=== PATIENT | male | born 1960 | race Caucasian/White ===

== ENCOUNTER 2016-10-06 19:05 | Emergency (ER) | payer OTHER ==
[~2016-10-06] VITALS: Ht 170.2 cm; Wt 85.0 kg
[2016-10-06 19:06] VITALS: Ht 170.2 cm; Wt 85.0 kg
[2016-10-06] MEDS ORDERED: SOD CHLORIDE 0.9% 1,000 ML IV STA (19:30)
[2016-10-06 19:58] LABS: ADD SCAN DIFF NO
[2016-10-06 20:01] LABS: ADD UMIC YES; URINE BILIRUBIN (Dip) NEGATIVE (NEGATIVE); URINE BLOOD (Dip) NEGATIVE (NEGATIVE); URINE COLOR LT. YELLOW (YELLOW); URINE GLUCOSE (Dip) NEGATIVE (NEGATIVE); URINE KETONES (Dip) NEGATIVE (NEGATIVE); URINE LEUKOCYTE ESTERASE (Dip) TRACE (NEGATIVE); URINE NITRITE (Dip) NEGATIVE (NEGATIVE); URINE TOTAL PROTEIN (Dip) NEGATIVE (NEGATIVE); URINE UROBILINOGEN (Dip) 0.2 E.U./dL (0.1-1.0)
[2016-10-06 20:01] LABS: ABNORMAL IP MESSAGE 1; HEMATOCRIT 42.5 % (42.0-52.0); HEMOGLOBIN 12.3 g/dl (14.0-18.0); MEAN CORPUSCULAR HEMOGLOBIN 18.5 pg (29.0-33.0); MEAN CORPUSCULAR HGB CONC 28.9 g/dl (32.0-37.0); MEAN CORPUSCULAR VOLUME 63.8 fl (82.0-101.0); MEAN PLATELET VOLUME 9.7 fl (7.4-10.4); PLATELET COUNT 563 10^3/UL (140-415); RED BLOOD COUNT 6.66 10^6/ul (4.70-6.10); RED CELL DISTRIBUTION WIDTH 19.8 % (11.5-14.5); WHITE BLOOD COUNT 25.3 10^3/ul (4.8-10.8)
[2016-10-06 20:10] LABS: ALBUMIN 4.1 g/dl (3.3-4.9); POTASSIUM 3.8 mmol/L (3.5-5.1)
[2016-10-06 20:12] LABS: BILIRUBIN,INDIRECT 1.4 mg/dl (0-1.1); BILIRUBIN,TOTAL 1.4 mg/dl (0.2-1.3); CREATININE 0.98 mg/dl (0.61-1.24)
[2016-10-06 20:13] LABS: SQUAMOUS EPITHELIAL CELL,UR FEW; URINE RBCS 0-2 /HPF (0)
[2016-10-06 20:13] LABS: ALBUMIN/GLOBULIN RATIO 1.13; CALCIUM 9.7 mg/dl (8.4-10.2); TOTAL PROTEIN 7.7 g/dl (6.1-8.1)
[2016-10-06 20:14] LABS: BACTERIA,URINE RARE
--- NOTE | 2016-10-06 20:21 | RADRPT ---
PROCEDURE: CT Brain without contrast. CLINICAL INDICATION: Altered mental status TECHNIQUE: Routine CT scan of the brain was performed on a high resolution multi detector scanner without intravenous contrast. One or more of the following dose reduction techniques were used: Auto mated exposure control; Adjustment of the mA and/or kV according to patient size; Use of iterative r econstruction technique. CTDI = 42 mGy. DLP = 720 mGy-cm. COMPARISON: No prior relevant examinations are available for comparison. FINDINGS: Hemorrhage: No evidence of intracranial hemorrhage. Acute ischemic changes: No evidence of acute ischemic changes. Mass effect/Midline shift: None. Parenchymal volume: Within normal limits for age. Ventricular system: Concordant with parenchymal volume. Chronic changes: Parenchymal attenuation is within normal limits. Extracranial soft tissues: Unremarkable. Calvarium: No fractures. Paranasal sinuses: Visualized paranasal sinuses are clear. Mastoid air cells: Visualized mastoid air cells are clear. IMPRESSION: No acute intracranial abnormalities. Normal appearance the brain parenchyma. MRI of the brain may be useful for further evaluation. RPTAT: AADD .Mak Sewell MD, MD Date Time Electronically viewed and signed by .Mak Sewell MD, MD on 10/06/2016 20:21 .B/
--- NOTE | 2016-10-06 20:37 | RADRPT ---
PROCEDURE: XR Chest. CLINICAL INDICATION: Shortness of breath. TECHNIQUE: Single frontal view. COMPARISON: None. FINDINGS: There is mild left basilar air space disease consistent with atelectasis or pneumonia. The lungs ar e otherwise clear. The heart size is normal. There is no pleural effusion. There is no pneumothorax. IMPRESSION: 1. Mild left basilar atelectasis or pneumonia. 2. Otherwise normal chest x-ray. RPTAT: QQ .Lenin Braun MD, MD Date Time Electronically viewed and signed by .Lenin Braun MD, MD on 10/06/2016 20:37 .R/
[2016-10-06 20:54] LABS: BASOPHIL # 0.5 10^3/ul (0.0-0.1); EOSINOPHILS # 0.3 10^3/ul (0.0-0.5); MONOCYTE # 1.5 10^3/ul (0.3-0.9)
[2016-10-06 20:55] LABS: HYPOCHROMASIA 1+; PLATELET ESTIMATE PLT APPEAR INCREASED
[2016-10-06 20:56] LABS: OVALOCYTES OCCASIONAL; STOMATOCYTES FEW
[2016-10-06 20:57] LABS: SCHISTOCYTES OCCASIONAL; SPHEROCYTES FEW
[2016-10-06] MEDS ORDERED: AZITHROMYCIN 500MG/NS (PMX) 250 ML IV STA (22:09)
[2016-10-06] MEDS ORDERED: CEFTRIAXONE 1 GM/50 ML (PMX) 50 ML IVPB STA (22:09)
--- NOTE | 2016-10-06 22:58 | ERA ---
ER Documentation Chief Complaint Date/Time DATE: 10/06/16 TIME: 22:53 Chief Complaint PT FELL AT HOME, NO KO, NO HEAD STRIKE, UNSTEADY ON FEET HPI This is a 56-year-old male who states he has had gradual worsening of slurred speech over the past 3 weeks. He says it was not a sudden onset. He did not have the onset of speech changes with any focal neurological complaints. He says that he is here tonight because over the past 3 days he has had worsening of his coordination. Says he keeps falling because he feels like he is losing his balance and his inability to coordinate his movements. He says he is not having any vertigo or a sense of spinning or falling. He has no focal neurological complaints of numbness or weakness. Denies any fever denies headache denies neck pain is no cough no shortness of breath no abdominal pain vomiting or diarrhea. The patient states he is however not drinking much water and says he feels dehydrated. Apparently he was seen in a [facility] a few days ago for back pain which he says is now gone ROS All systems reviewed and are negative except as per history of present illness. PMhx/Soc History of Surgery: No Anesthesia Reaction: No Hx Neurological Disorder: No Hx Respiratory Disorders: No Hx Cardiac Disorders: No Hx Psychiatric Problems: Yes (bipolar) Hx Miscellaneous Medical Probl: No Hx Alcohol Use: No Hx Substance Use: No Hx Tobacco Use: No Smoking Status: Never smoker FmHx Family History: No coronary disease Physical Exam Vitals Vital Signs Date Time Temp Pulse Resp B/P Pulse Ox O2 Delivery O2 Flow Rate FiO2 10/06/16 21:55 98.1 80 18 134/76 99 Room Air 10/06/16 19:06 98.8 92 18 133/78 97 Physical Exam Const: Well-developed, well-nourished Head: Atraumatic, normocephalic Eyes: Normal Conjunctiva, PERRLA, EOMI, normal sclera, no nystagmus ENT: Normal External Ears, Nose and Mouth, dry mucus membranes. Neck: Full range of motion. No meningismus, no lymphadenopathy. Resp: Clear to auscultation bilaterally, no wheezing, rhonchi, rales Cardio: Regular rate and rhythm, no murmurs, S1 S2 present Abd: Soft, non tender x 4, non distended. Normal bowel sounds, no guarding or rebound, no pulsitile abdominal masses or bruits Skin: No petechiae or rashes, no ecchymosis , no maculopapular rash Back: No midline or flank tenderness Ext: No cyanosis, or edema, FROM x 4, normal inspection, neurovascularly intact x 4 Neur: Awake and alert, STR 5/5 x 4, sensation intact x 4, no focal findings, cerebellum intact, the patient was ambulated and when he walks he leans forward but has a straight gait without any fall or left or right deviation Psych: Normal Mood and Affect Result Diagram: 10/06/16193810/06/161938 Results 24 hrs Laboratory Tests Test 10/06/16 19:39 10/06/16 19:45 Alanine Aminotransferase (ALT/SGPT) 25IU/L Albumin 4.1g/dl Albumin/Globulin Ratio 1.13 Alkaline Phosphatase 131IU/L Anion Gap 18 Aspartate Amino Transf (AST/SGOT) 19IU/L Basophils # 0.510^3/ul Basophils % 2.0% Blood Urea Nitrogen 12mg/dl Calcium Level 9.7mg/dl Carbon Dioxide Level 28mmol/L Chloride Level 104mmol/L Creatinine 0.98mg/dl Direct Bilirubin 0.00mg/dl Eosinophils # 0.310^3/ul Eosinophils % 1.0% Globulin 3.60g/dl Glucose Level 82mg/dl Hematocrit 42.5% Hemoglobin 12.3g/dl Hypochromasia 1+ Indirect Bilirubin 1.4mg/dl [place] Level 0.6mmol/L Lymphocytes # 4.010^3/ul Lymphocytes % 16.0% Mean Corpuscular Hemoglobin 18.5pg Mean Corpuscular Hemoglobin Concent 28.9g/dl Mean Corpuscular Volume 63.8fl Mean Platelet Volume 9.7fl Monocytes # 1.510^3/ul Monocytes % 6.0% Neutrophils # 19.010^3/ul Neutrophils % 75.0% Nucleated Red Blood Cells # 10^3/ul Nucleated Red Blood Cells % 0.0/100WBC Ovalocytes OCCASIONAL Platelet Count 28829^3/UL Platelet Estimate PLT APPEAR INCREASED Potassium Level 3.8mmol/L Red Blood Count 6.6610^6/ul Red Cell Distribution Width 19.8% Schistocytes OCCASIONAL Sodium Level 146mmol/L Spherocytes FEW Stomatocytes FEW Total Bilirubin 1.4mg/dl Total Protein 7.7g/dl White Blood Count 25.310^3/ul Urine Bacteria RARE Urine Bilirubin NEGATIVE Urine Clarity CLEAR Urine Color LT. YELLOW Urine Glucose NEGATIVE% Urine Hemoglobin NEGATIVE Urine Ketones NEGATIVE Urine Leukocyte Esterase TRACE Urine Microscopic RBC 0-2/HPF Urine Microscopic WBC 2-5/HPF Urine Nitrite NEGATIVE Urine Specific [place] <=1.005 Urine Squamous Epithelial Cells FEW Urine Total Protein NEGATIVE Urine Urobilinogen 0.2 E.U./dL Urine pH 6.5 Current Medications Medications (Trade) Dose Ordered Sig/Martina Route PRN Reason Start Time Stop Time Status Last Admin Dose Admin Sodium Chloride 1,000 ml @ 1,000 mls/hr Q1H STAT IV 10/06/16 19:30 10/06/16 20:29 DC 10/06/16 20:32 Azithromycin 250 ml @ 250 mls/hr ONCE STAT IV 10/06/16 22:09 10/06/16 23:08 Ceftriaxone Sodium (Rocephin) 50 ml @ 100 mls/hr ONCE STAT IVPB 10/06/16 22:09 10/06/16 22:38 DC 10/06/16 22:14 Procedures/MDM EKG: Rate/Rhythm: Normal Sinus Rhythm,NL intervals QRS, ST, QT: NORMAL CT, QRS, QT] Impression: NORMAL EKG PROCEDURE: CT Brain without contrast. CLINICAL INDICATION: Altered mental status TECHNIQUE: Routine CT scan of the brain was performed on a high resolution multi detector scanner without intravenous contrast. One or more of the following dose reduction techniques were used: Automated exposure control; Adjustment of the mA and/or kV according to patient size; Use of iterative reconstruction technique. CTDI = 42 mGy. DLP = 720 mGy-cm. COMPARISON: No prior relevant examinations are available for comparison. FINDINGS: Hemorrhage: No evidence of intracranial hemorrhage. Acute ischemic changes: No evidence of acute ischemic changes. Mass effect/Midline shift: None. Parenchymal volume: Within normal limits for age. Ventricular system: Concordant with parenchymal volume. Chronic changes: Parenchymal attenuation is within normal limits. Extracranial soft tissues: Unremarkable. Calvarium: No fractures. Paranasal sinuses: Visualized paranasal sinuses are clear. Mastoid air cells: Visualized mastoid air cells are clear. IMPRESSION: No acute intracranial abnormalities. Normal appearance the brain parenchyma. MRI of the brain may be useful for further evaluation. RPTAT: AADD .Mak Sewell MD, Date Time Electronically viewed and signed by .Mak Sewell MD, MD on 10/06/2016 20:21 .B/ CC: ALOK MYERS DO PROCEDURE: XR Chest. CLINICAL INDICATION: Shortness of breath. TECHNIQUE: Single frontal view. COMPARISON: None. FINDINGS: There is mild left basilar air space disease consistent with atelectasis or pneumonia. The lungs are otherwise clear. The heart size is normal. There is no pleural effusion. There is no pneumothorax. IMPRESSION: 1. Mild left basilar atelectasis or pneumonia. 2. Otherwise normal chest x-ray. RPTAT: QQ .Lenin Braun MD, MD Date Time Electronically viewed and signed by .Lenin Braun MD, MD on 10/06/2016 20:37 .R/ CC: ALOK MYERS DO Patient blood and urine cultures taken and given Rocephin and Zithromax. The patient is a white blood count elevation 25.3 does have some possible mild pneumonia but looks more like atelectasis on his chest x-ray. Also, the patient is not clinically matching pneumonia without having a fever and no cough. I cannot explain why he has a leukocytosis and wondering if he has some type of vasculitis intracerebrally or bacteremia. Spoke with [place] and will transfer him to [facility] Departure Diagnosis: Primary Impression: Leukocytosis Qualified Code: D72.829 - Leukocytosis, unspecified type Additional Impression: Fall Qualified Code: W19.XXXA - Fall, initial encounter Condition: Stable ALOK MYERS DO Oct 06, 2016 22:58
[2016-10-06 23:57] VITALS: BP 131/79; PULSE 82; RESP 17; TEMP 97.8
== END 2016-10-07 01:14 | disposition short-term general hospital (02) ==
LOC: E/R 19:05
DX: D72.829 Elevated white blood cell count, unspecified (principal); R40.2252 Coma scale, best verbal response, oriented, at arrival to emergency department; R40.2142 Coma scale, eyes open, spontaneous, at arrival to emergency department; R40.2362 Coma scale, best motor response, obeys commands, at arrival to emergency department; W18.39XA Other fall on same level, initial encounter; Y92.009 Unspecified place in unspecified non-institutional (private) residence as the place of occurrence of the external cause
CPT/HCPCS: 36415; 70450; 71010; 80053; 80178; 81001; 85025; 87040; 87086; 96374; 96375; 99285; J0456; J0696; J7030; 81003